=== PATIENT | female | born 1970 | race Caucasian/White ===

== ENCOUNTER → 2022-03-24 14:49 | Outpatient (BNVA) | payer OTHER, SELFPAY | PROVIDERS: PCP Family Medicine; Visit Provider Internal Medicine | DX: M06.9 Rheumatoid arthritis, unspecified (principal); Z79.899 Other long term (current) drug therapy | CPT/HCPCS: 36415; 73120; 80053; 82550; 85025; 85651; 86140; 86431; 86480; 86704; 86803; 87340 ==

== ENCOUNTER → 2023-03-04 15:36 | Outpatient (BNVA) | payer MEDICAID, SELFPAY | PROVIDERS: Visit Provider Internal Medicine | DX: M06.9 Rheumatoid arthritis, unspecified (principal); L40.9 Psoriasis, unspecified; M19.049 Primary osteoarthritis, unspecified hand; M18.9 Osteoarthritis of first carpometacarpal joint, unspecified | CPT/HCPCS: 72040; 72100; 72202; 73620; 99214; J1030 ==

== ENCOUNTER 2023-06-02 08:53 | Emergency (ER) | payer MEDICAID, SELFPAY ==
[2023-06-02 08:57] VITALS: BP 147/79; PULSE 91; RESP 17; TEMP 36.7; O2SAT 100; BMI 30.1
--- NOTE | 2023-06-02 09:13 | USCV_ITS ---
Brayan Rangel Age: 52 Gender: F : 1970 Exam Date: 06/02/2023 09:32 Ordering Phys: Michelet Chang DO Technologist: [place] [facility] [place]: [place] leg swelling PROCEDURES: Venous duplex imaging was performed in only the left lower extremity. The following venous structures were evaluated: common femoral vein, profunda vein, proximal portion of the greater saphenous vein, superficial femoral vein, and the popliteal vein. In addition, the posterior tibial and peroneal trunk were evaluated. On the left side, the common femoral, superficial femoral, profunda femoral, popliteal, posterior tibial, greater saphenous veins, and the peroneal trunk were identified and interrogated in the standard fashion. These veins were found to be easily compressible with spontaneous blood flow. No evidence of insufficiency or thrombus noted. FINDINGS: Normal 2-D Doppler and augmentation and compressibility throughout the lower extremity venous structures. Additional imaging through the proximal calf veins also reveals no thrombus. Limited evaluation of the greater saphenous vein is patent with no thrombus. CONCLUSIONS No evidence of left lower extremity DVT. Jacobo Leslie MD (Electronically Signed) Final Date: 02 June 2023 11:36 S
--- NOTE | 2023-06-02 09:20 | W.ED.EXTPRO ---
HPI - Extremity Problem General: Chief complaint: Extremity Injury, Lower Stated complaint: sent from neuro Time Seen by Provider: 06/02/23 08:59 Source: patient Mode of arrival: ambulatory History of Present Illness: 52-year-old female presents emergency room with complaints of left leg pain. States left leg has been bothering her for the last 2 months moderately swollen most the pain is the medial thigh. She has a history rheumatoid arthritis that she was in to see the neurologist this morning for an essential tremor I discussed that with him he referred to the emergency room for evaluation for DVT. No history of DVT or PE she is not on any oral anticoagulants. No recent surgery. No shortness of breath or hemoptysis MD Complaint: extremity pain and extremity swelling Onset (ago): month(s) (2) Quality: aching Relieving factors: nothing Exacerbating factors: nothing Associated symptoms: Deny chest pain, fever(s), rash or short of breath Review of Systems Const: Denies: fever(s) or chills Card: Denies: chest pain Resp: Denies: dyspnea GI: Denies: abdominal pain : Denies: dysuria, urinary frequency or urinary urgency Musc: Denies: neck pain or back pain Skin/Breast: Denies: rash PFSH ED PFSH: Medical History Rheumatoid arthritis Family History Mother Cancer breast High cholesterol Thyroid disease Grandmother Arthritis Physical Exam Const: COMMON NORMALS: no acute distress GENERAL APPEARANCE: cooperative and comfortable ORIENTATION/CONSCIOUSNESS: Yes awake, Yes oriented to person, Yes oriented to place and Yes oriented to time HENMT: COMMON NORMALS: normocephalic, atraumatic and hearing grossly normal bilaterally HEAD & SCALP: normocephalic and atraumatic Resp: COMMON NORMALS: normal respiratory effort, No retractions, No use of accessory muscles and clear to auscultation bilaterally AUSCULTATION: clear to auscultation bilaterally Cardio: COMMON NORMALS: regular rate, regular rhythm and No murmurs present (Cardio) RATE: regular rate RHYTHM: regular rhythm GI: COMMON NORMALS: Soft to palpation and No hepatosplenomegaly present AUSCULTATION: Yes normoactive bowel sounds PALPATION: Yes Soft to palpation, No Tenderness to palpation present (GI), No Guarding due to palpation present (GI) and Yes No hepatosplenomegaly present Extremity: COMMON NORMALS: normal to inspection, capillary refill normal, no clubbing, cyanosis or edema, no calf tenderness and no pedal edema Neuro: SENSORIUM/ORIENTATION: Yes oriented to person, Yes oriented to place and Yes oriented to time Skin: COMMON NORMALS: no rashes or lesions noted GENERAL SKIN EXAM: no rashes or lesions noted Course Vital Signs: Vital signs: Vital Signs Temperature 98.1 F 06/02/23 08:57 Pulse Rate 91 06/02/23 08:57 Respiratory Rate 17 06/02/23 08:57 Blood Pressure 147/79 06/02/23 08:57 Pulse Oximetry 100 06/02/23 08:57 Oxygen Delivery Me thod Room Air 06/02/23 08:57 MDM - Extremity (Nontraumatic) Medical Decision Making Neurology seen the patient today with concerns of venous thrombosis. Ultrasound shows no DVT. Patient has pain in the upper thigh does not appear to be radiating from the hip joint may possibly be from the lumbar spine of the nerve root irritation although it does not extend all the way into the leg. She is currently being seen by rheumatology. To follow-up with her primary care doctor or rheumatology if symptoms persist. There is no skin disruption suggestive of a varicella-zoster. Medical Records I reviewed the patient's medical records. Lab Data I reviewed the patient's lab results. 06/02/23 09:40 06/02/23 09:40 Laboratory Results WBC 7.60 10^3/uL (3.29-11.43) 06/02/23 09:40 RBC 4.57 10^6/uL (3.85-5.65) 06/02/23 09:40 Hgb 13.70 g/dL (11.27-16.99) 06/02/23 09:40 Hct 41.3 % (36-47) 06/02/23 09:40 MCV 90.4 fl (85-98) 06/02/23 09:40 MCH 30.0 pg (27-33) 06/02/23 09:40 MCHC 33.2 g/dL (30-55) 06/02/23 09:40 RDW 12.8 % (12.1-15.1) 06/02/23 09:40 Plt Count 323 10^3/cmm (157-399) 06/02/23 09:40 MPV 9.1 fL (7.4-10.4) 06/02/23 09:40 Neut % (Auto) 44.5 % 06/02/23 09:40 Lymph % (Auto) 37.9 % 06/02/23 09:40 [place] % (Auto) 8.3 % 06/02/23 09:40 Eos % (Auto) 7.8 % 06/02/23 09:40 Baso % (Auto) 1.1 % 06/02/23 09:40 Neut # (Auto) 3.39 10^3/uL (1.8-7.7) 06/02/23 09:40 Lymph # (Auto) 2.9 10^3/uL (0.8-4.8) 06/02/23 09:40 [place] # (Auto) 0.6 10^3/uL (0.2-0.9) 06/02/23 09:40 Eos # (Auto) 0.6 10^3/uL (0.0-0.8) 06/02/23 09:40 Baso # (Auto) 0.1 10^3/uL (0.0-0.1) 06/02/23 09:40 Nucleated RBC % (auto) 0 % 06/02/23 09:40 Nucleated RBCs # 0.0 /100WBC 06/02/23 09:40 Sodium 138 mmol/L (136-145) 06/02/23 09:40 Potassium 4.0 mmol/L (3.5-5.1) 06/02/23 09:40 Chloride 104 mmol/L (98-107) 06/02/23 09:40 Carbon Dioxide 22 mmol/L (22-29) 06/02/23 09:40 Anion Gap 16.0 (5-19) 06/02/23 09:40 BUN 21 mg/dL (6-20) H 06/02/23 09:40 Creatinine 0.9 mg/dL (0.5-0.9) 06/02/23 09:40 GFR Calculation 66.0 mL/min (90-130) L 06/02/23 09:40 Glucose 90 mg/dL (65-115) 06/02/23 09:40 Calculated Osmolality 289 mOsm/kg (285-295) 06/02/23 09:40 Calcium 9.5 mg/dL (8.5-10.5) 06/02/23 09:40 Total Bilirubin 0.4 mg/dL (0.15-1.2) 06/02/23 09:40 AST 24 U/L (0-32) 06/02/23 09:40 ALT 23 U/L (0-33) 06/02/23 09:40 Alkaline Phosphatase 142 U/L (35-105) H 06/02/23 09:40 Total Protein 7.9 g/dL (6.6-8.7) 06/02/23 09:40 Albumin 4.6 g/dL (3.5-5.2) 06/02/23 09:40 Globulin 3.3 g/dL (1.3-4.6) 06/02/23 09:40 All radiology interpretation(s) finalized by discharge Discharge Plan Discharge Patient Disposition: Home Clinical Impression: Left thigh pain Condition: Stable Prescriptions: No Action meloxicam 15 mg tablet 15 mg PO DAILY Qty: 30 0RF Rx Instructions: stop all NSAIDs methylprednisolone acetate 40 mg/mL suspension 40 mg IM ONCE Qty: 1 0RF tizanidine 4 mg capsule 4 mg PO .hs PRN (Reason: muscle spasticity) Qty: 30 0RF dextroamphetamine-amphetamine [Adderall XR] 10 mg capsule,extended release 24hr 10 mg PO DAILY lurasidone [Latuda] 60 mg tablet 60 mg PO DAILY Rx Instructions: must administer with food (at least 350 calories) amitriptyline 100 mg tablet 100 mg PO DAILY gabapentin 600 mg tablet 600 mg PO TID promethazine 25 mg tablet 25 mg PO QID PRN erythromycin 5 mg/gram (0.5 %) ointment 1 applic ophthalmic (eye) DAILY hydroxychloroquine 200 mg tablet 200 mg PO BID Qty: 60 3RF leflunomide 20 mg tablet 20 mg PO DAILY Qty: 30 3RF prednisone 20 mg tablet See Rx Instructions PO .COMPLEX PRN (Reason: joint pain flare) Qty: 30 1RF Rx Instructions: take 1 or 2 tab daily for up to 7 days as needed for arthritis flare PO PRN; Discharge Orders: Discharge ED (Routine); Ordered 04/17/24 Ordered By: Michelet Chang Discharge Diet: Usual diet Discharge Activity: Resume usual activity Patient Instructions: Opioid Safety, Pain Management Activity Restrictions/Additional Instructions: Thank you for choosing [facility] for your healthcare needs today. Please realize this is an emergency room and that we are providing you with a medical screening exam and this may not be complete and all inclusive of all the testing and or work up that you may need to determine your ailment or severity of your illness. It is very important that you follow up as instructed or that you return to the Emergency Department should you have concerns or if your condition changes or worsens in any way. You were seen today for left thigh pain. Ultrasound of your thigh showed no evidence of DVT. Given your history of rheumatoid arthritis and osteoarthritis this discomfort may be due to that. 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 Coding Level of Care Code ED [employer] for Dinorah Garner
[2023-06-02 09:45] LABS: Basophils # 0.1 10^3/uL (0.0-0.1); Basophils % 1.1 %; Eosinophils # 0.6 10^3/uL (0.0-0.8); Eosinophils % 7.8 %; Hematocrit 41.3 % (36-47); Lymphocytes # 2.9 10^3/uL (0.8-4.8); Lymphocytes % 37.9 %; Mean Corpuscular HGB Conc 33.2 g/dL (30-55); Mean Corpuscular Volume 90.4 fl (85-98); Mean Platelet Volume 9.1 fL (7.4-10.4); Monocytes # 0.6 10^3/uL (0.2-0.9); Monocytes % 8.3 %; Neutrophils # 3.39 10^3/uL (1.8-7.7); Neutrophils % 44.5 %; Nucleated Red Blood Cells % 0 %; Platelet Count 323 10^3/cmm (157-399); Red Blood Count 4.57 10^6/uL (3.85-5.65); Red Cell Distribution Width 12.8 % (12.1-15.1)
[2023-06-02 10:04] LABS: Alanine Aminotransferase 23 U/L (0-33); Albumin Level 4.6 g/dL (3.5-5.2); Alkaline Phosphatase 142 U/L (35-105); Aspartate Amino Transferase 24 U/L (0-32); Blood Urea Nitrogen 21 mg/dL (6-20); Calcium 9.5 mg/dL (8.5-10.5); Carbon Dioxide 22 mmol/L (22-29); Chloride 104 mmol/L (98-107); Creatinine Clr Calc Pharmacy 72.7132; Globulin 3.3 g/dL (1.3-4.6); Glucose 90 mg/dL (65-115); Osmolality Calculated 289 mOsm/kg (285-295); Sodium 138 mmol/L (136-145); Total Bilirubin 0.4 mg/dL (0.15-1.2); Total Protein 7.9 g/dL (6.6-8.7)
--- NOTE | 2023-06-02 10:18 | PC.PHAR ---
pt states she takes care of her own medications-pt states she takes gabapentin 600mg po bid ext shows last filled 600mg tid 05/22/23 30d/s-pt states she still takes hydroxycloroquine 200mg daily ext shows last filled 03/03/23 30d/s 200mg bid-pt states she no longer takes leflunomide 20mg daily states it made her sick ext shows last filled 04/22/23 30d/s-pt states she takes doxepin 50mg hs prn-pt states she no longer takes phentermine 37.5mg daily ext shows last filled 04/27/23 30d/s-notes are made in the pharmacy comments
== END 2023-06-02 10:26 | disposition home or self-care (01) ==
PROVIDERS: Emergency Provider Family Medicine
DX: M79.652 Pain in left thigh (principal); R25.1 Tremor, unspecified
CPT/HCPCS: 36415; 80053; 85025; 93971; 99203; 99284

== ENCOUNTER → 2023-08-18 13:11 | Outpatient (BNVA) | payer MEDICAID, SELFPAY | PROVIDERS: Visit Provider Internal Medicine Rheumatology | DX: M06.9 Rheumatoid arthritis, unspecified (principal); M19.049 Primary osteoarthritis, unspecified hand; M06.041 Rheumatoid arthritis without rheumatoid factor, right hand; M06.042 Rheumatoid arthritis without rheumatoid factor, left hand; L98.2 Febrile neutrophilic dermatosis [Sweet]; Z71.85 Encounter for immunization safety counseling; Z79.899 Other long term (current) drug therapy; F17.290 Nicotine dependence, other tobacco product, uncomplicated | CPT/HCPCS: 99214 ==

== ENCOUNTER → 2024-01-05 15:00 | Outpatient (BNVA) | payer MEDICAID, SELFPAY | PROVIDERS: Visit Provider Internal Medicine Rheumatology | DX: M06.041 Rheumatoid arthritis without rheumatoid factor, right hand (principal); M06.042 Rheumatoid arthritis without rheumatoid factor, left hand; Z79.899 Other long term (current) drug therapy | CPT/HCPCS: 36415; 80076; 82565; 85025; 85651; 86140 ==

== ENCOUNTER 2024-09-04 10:30 | Oncology outpatient (recurring) (ONCR) | payer MEDICAID, SELFPAY ==
[2024-08-21] VITALS (7 sets, daily range): BP systolic 122–156; BP diastolic 71–88; PULSE 82–90; TEMP 36.6–36.7; O2SAT 97–99
[2024-08-21] MEDS: diphenhydrAMINE 50 mg/mL SDV 1mL 25 MG IVP (11:54)
[2024-08-21] MEDS: methylPREDNISolone sod succ 40 mg/mL INJ IVP (12:01)
[2024-09-04] VITALS (8 sets, daily range): BP systolic 127–151; BP diastolic 78–93; PULSE 92–99; RESP 17–18; TEMP 36.3–36.8; O2SAT 97–99
[2024-09-04] MEDS: diphenhydrAMINE 50 mg/mL SDV 1mL 25 MG IVP (11:07)
[2024-09-04] MEDS: methylPREDNISolone sod succ 40 mg/mL INJ IVP (11:10)
== END 2024-09-14 23:59 | disposition home or self-care (01) ==
PROVIDERS: PCP Nuclear Medicine; Visit Provider Internal Medicine Rheumatology
DX: Z53.9 Procedure and treatment not carried out, unspecified reason; M06.042 Rheumatoid arthritis without rheumatoid factor, left hand; M06.041 Rheumatoid arthritis without rheumatoid factor, right hand; Z79.899 Other long term (current) drug therapy
CPT/HCPCS: 96375; 96413; A4222; J1200; J2919; J7050; J9999; Q5104

== ENCOUNTER 2024-10-02 10:34 | Oncology outpatient (recurring) (ONCR) | payer MEDICAID, SELFPAY ==
[2024-10-02 10:53] VITALS: BP 115/72; PULSE 91; O2SAT 98
[2024-10-02] MEDS: diphenhydrAMINE 50 mg/mL SDV 1mL 25 MG IVP (11:35)
[2024-10-02] MEDS: methylPREDNISolone sod succ 40 mg/mL INJ IVP (11:40)
[2024-10-02 12:12] VITALS: BP 154/96; PULSE 70; RESP 18; O2SAT 98
[2024-10-02 12:30] VITALS: BP 133/86; PULSE 84; RESP 16; O2SAT 98
[2024-10-02 12:45] VITALS: BP 135/79; PULSE 82; RESP 16; TEMP 36.2; O2SAT 96
[2024-10-02 13:00] VITALS: BP 129/82; PULSE 88; RESP 16; TEMP 36.6; O2SAT 97
[2024-10-02 14:38] VITALS: BP 142/74; PULSE 92; RESP 17; TEMP 36.8; O2SAT 98
== END 2024-10-15 23:59 | disposition home or self-care (01) ==
PROVIDERS: PCP Nuclear Medicine; Visit Provider Internal Medicine Rheumatology
DX: M06.042 Rheumatoid arthritis without rheumatoid factor, left hand (principal); M06.041 Rheumatoid arthritis without rheumatoid factor, right hand; Z79.899 Other long term (current) drug therapy
CPT/HCPCS: 96375; 96413; A4222; J1200; J2919; J7050; J9999; Q5104

== ENCOUNTER → 2024-10-24 14:06 | Outpatient (BNVA) | payer MEDICAID, SELFPAY | PROVIDERS: PCP Nuclear Medicine; Visit Provider Internal Medicine Rheumatology | DX: M06.041 Rheumatoid arthritis without rheumatoid factor, right hand (principal); M06.042 Rheumatoid arthritis without rheumatoid factor, left hand; M19.049 Primary osteoarthritis, unspecified hand; L98.2 Febrile neutrophilic dermatosis [Sweet]; Z79.899 Other long term (current) drug therapy; Z71.85 Encounter for immunization safety counseling; Z79.52 Long term (current) use of systemic steroids; G57.11 Meralgia paresthetica, right lower limb | CPT/HCPCS: 99214 ==

== ENCOUNTER 2024-12-11 10:20 | Oncology outpatient (recurring) (ONCR) | payer MEDICAID, SELFPAY | END 2024-12-15 23:59 | disposition home or self-care (01) | PROVIDERS: PCP Nuclear Medicine; Visit Provider Internal Medicine Rheumatology | DX: Z53.9 Procedure and treatment not carried out, unspecified reason (principal) ==

== ENCOUNTER 2024-12-25 10:45 | Oncology outpatient (recurring) (ONCR) | payer MEDICAID, SELFPAY ==
[2024-12-25] MEDS: diphenhydrAMINE 50 mg/mL SDV 1mL 25 MG IVP (11:34)
[2024-12-25] MEDS: methylPREDNISolone sod succ 40 mg/mL INJ IVP (11:42)
[2024-12-25 12:23] VITALS: BP 157/95; PULSE 82; RESP 16; TEMP 36.2; O2SAT 98
[2024-12-25 12:38] VITALS: BP 125/76; PULSE 90; RESP 16; TEMP 36.6; O2SAT 98
[2024-12-25 13:11] VITALS: BP 132/74; PULSE 90; RESP 16; TEMP 36.6; O2SAT 99
[2024-12-25 13:24] VITALS: BP 151/86; PULSE 94; RESP 16; TEMP 36.4
[2024-12-25 13:55] VITALS: BP 144/81; PULSE 87; RESP 16; TEMP 36.3; O2SAT 99
[2024-12-25 14:55] VITALS: BP 149/86; PULSE 92; RESP 16; TEMP 36.6; O2SAT 99
== END 2025-01-14 23:59 | disposition home or self-care (01) ==
PROVIDERS: PCP Nuclear Medicine; Visit Provider Internal Medicine Rheumatology
DX: M06.042 Rheumatoid arthritis without rheumatoid factor, left hand (principal); M06.041 Rheumatoid arthritis without rheumatoid factor, right hand; Z79.899 Other long term (current) drug therapy
CPT/HCPCS: 96375; 96413; 96415; A4222; J1200; J2919; J7050; J9999; Q5104

== ENCOUNTER 2025-02-05 11:12 | Oncology outpatient (recurring) (ONCR) | payer MEDICAID, SELFPAY ==
[2025-02-05 11:32] VITALS: BP 128/77; PULSE 92; RESP 18; TEMP 36.2; O2SAT 99
[2025-02-05] MEDS: diphenhydrAMINE 50 mg/mL SDV 1mL 25 MG IVP (11:46)
[2025-02-05] MEDS: methylPREDNISolone sod succ 40 mg/mL INJ IVP (11:50)
[2025-02-05 13:07] VITALS: BP 135/80; PULSE 92; RESP 18; TEMP 36.1; O2SAT 99
== END 2025-02-14 23:59 | disposition home or self-care (01) ==
PROVIDERS: PCP Nuclear Medicine; Visit Provider Internal Medicine Rheumatology
DX: Z53.9 Procedure and treatment not carried out, unspecified reason; M06.042 Rheumatoid arthritis without rheumatoid factor, left hand; M06.041 Rheumatoid arthritis without rheumatoid factor, right hand; Z79.899 Other long term (current) drug therapy
CPT/HCPCS: 96375; 96413; J1200; J2919; J7050; J9999; Q5104